=== PATIENT | female | born 1965 | race Caucasian/White ===

== ENCOUNTER 2019-10-18 02:55 | Emergency (ER) | payer BC, MEDICAID, SELFPAY ==
[2019-10-18 03:03] VITALS: BP 120/75; PULSE 70; RESP 18; TEMP 37; O2SAT 98
[2019-10-18] MEDS: FLUORESCEIN SOD 1 MG/STRIP EACH EYE (03:48)
[2019-10-18] MEDS: TETRACAINE HCL 0.5% OPHTH SOLN 4 ML BTL 1 DROP EACH EYE (03:48)
[2019-10-18] MEDS: DACRIOSE EYE IRRIGATION 118 ML BOTTLE RIGHT EYE (03:49)
--- NOTE | 2019-10-18 04:06 | ED.EYEPROB ---
HPI - Eye Problem General Chief complaint: Eye Problems Stated complaint: EYE PAIN Source: patient Mode of arrival: ambulatory Limitations: no limitations History of Present Illness HPI Narrative: Patsy is a 54F with a PMH of anxiety that presented to the ED with difcomfort in her right eye. She woke up with discomfort and felt like something was in her right eye. She rubbed it a lot and irrigated it well without relief. She feels like something is stuck in it. She does not wear glasses or contacts. She reports slightly blurred vision. No trauma to the area. 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 No fevers, chills, N/V/D, CP, or SOB. Related Data Home Medications Medication Instructions Recorded Confirmed Unable to Obtain Home Medications 10/18/19 10/18/19 Allergies Allergy/AdvReac Type Severity Reaction Status Date / Time Penicillins Allergy Mild Blister Verified 10/18/19 03:10 Review of Systems Constitutional: Constitutional: Reports no additional constitutional complaints Eyes: Eyes: Reports as per HPI ENT: Reports system reviewed and no additional complaints, except as documented Cardiovascular: Cardiovascular: Reports no additional cardiovascular complaints Respiratory: Respiratory: Reports no additional respiratory complaints Gastrointestinal: Gastrointestinal: Reports no additional gastrointestinal complaints Genitourinary: Genitourinary: Reports no additional female genitourinary complaints Musculoskeletal: Musculoskeletal: Reports no additional musculoskeletal complaints Integumentary/Breasts: Skin/Breast: Reports system reviewed and no additional complaints, except as docu Neurologic: Reports system reviewed and no additional complaints, except as documented Psychiatric: Psychiatric: Reports no additional psychiatric complaints Endocrine: Endocrine: Reports no additional endocrine complaints Hematologic/Lymphatic: Hematologic/Lymphatic: Reports no additional hematologic/lymphatic complaints Allergic/Immunologic: Allergic/Immunologic: Reports no additional allergic/immunologic complaints [facility] Social History Social History Gender identity (if verbalized by the patient): Female Sexual Orientation (if Verbalized by the Patient): Straight or Heterosexual Exam Const: General: no acute distress Orientation/consciousness: patient oriented x3 HENMT: Head: normal to inspection Other: Normocephalic, atraumatic Eyes: Conjunctivae: normal conjunctivae Direct Ophthalmoscopy: no photophobia Other: EOMI, PERRL, no conjunctival injection fluorescein eye exam showed 3 small horizontal running streaks on the superior cornea After application of the tetracaine the pain/sensation completely resolved. Neck: Neck: normal visual inspection Resp: Effort & Inspection: normal respiratory effort Cardio: Rate: regular rate Skin: General skin exam: normal color Rashes: no rashes Neuro: General: patient oriented x3 and moves all extremities Extrem: General: normal to inspection Psych: Mental Status: mental status grossly normal Course Course Emergency Course: Patsy was seen and evaluated. A fluorescein was done as below and showed some very small streaks. She also had immediate relief with tetracain eye drops. Given this she will be discharged with ciprofloxacin eye drops and will follow up with Dr. Vallejo's office tomorrow (she will be given the contact info) Vital Signs Vital signs: Vital Signs Temperature 98.6 F 10/18/19 03:03 Pulse Rate 70 10/18/19 03:03 Respiratory Rate 18 10/18/19 03:03 Blood Pressure 120/75 10/18/19 03:03 Pulse Oximetry 98 10/18/19 03:03 Temperature 98.6 F 10/18/19 03:03 Pulse Rate 70 10/18/19 03:03 Respiratory Rate 18 10/18/19 03:03 Blood Pressure 120/75 10/18/19 03:03 Pulse Oximetry 98 10/18/19 03:03 Discharge Plan Discharge Clin
[2019-10-18 04:20] VITALS: BP 120/66; PULSE 66; RESP 16; TEMP 36.8; O2SAT 96
== END 2019-10-18 04:30 | disposition home or self-care (01) ==
PROVIDERS: Emergency Provider Family Medicine
DX: S05.01XA Injury of conjunctiva and corneal abrasion without foreign body, right eye, initial encounter (principal)
CPT/HCPCS: 99282; 99283; A9270